=== PATIENT | female | born 1965 | race Caucasian/White ===

== ENCOUNTER → 2017-05-02 13:07 | Outpatient (CLI) | payer BC ==
[2014-12-09 07:34] VITALS: BMI 30.1
[~2017-05-02 13:07] MED LIST: HYDROCODONE-APA1 TAB PO
== END | disposition home or self-care (01) ==
LOC: D.MRI 13:00
DX: R51 Headache (principal)

== ENCOUNTER → 2017-05-02 16:58 | Outpatient (CLI) | payer MEDICAID ==
[2014-12-09 07:34] VITALS: BMI 30.1
== END | disposition home or self-care (01) ==
LOC: D.MAMMO 10:15
DX: Z12.31 Encounter for screening mammogram for malignant neoplasm of breast (principal)

== ENCOUNTER 2017-12-10 09:06 | Observation (INO) | payer BC ==
[~2017-12-10] VITALS: Ht 170.2 cm; Wt 86.2 kg
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
[2017-12-10 12:08] LABS: BASOPHILS 0.2 % (0-2); EOSINOPHILS 1.2 % (0-7); HEMATOCRIT 41.8 % (36.0-48.0); HEMOGLOBIN 13.7 g/dL (12-16); IMMATURE GRANULOCYTES 0.2 % (0-5); LYMPHOCYTES 10.9 % (15-50); MCH 28.7 pg (26.0-34.0); MCHC 32.8 g/dL (31.0-37.0); MCV 87.6 fL (80.0-100.0); MEAN PLATELET VOLUME 10.9 fL (7.4-10.4); MONOCYTES 6.1 % (2-11); NEUTROPHILS 81.4 % (40-80); PLATELET COUNT 210 10x3/uL (130-400); RBC 4.77 10x6/uL (4.00-5.40); RDW 14.2 % (11.5-14.5); WBC 10.8 10x3/uL (4.8-10.8)
[2017-12-10 12:19] LABS: INR 1.02 (0.85-1.17)
[2017-12-10 12:22] LABS: ALBUMIN 3.6 g/dL (3.4-5.0); ALKALINE PHOSPHATASE 158 U/L (46-116); ALT (SGPT) 46 U/L (10-68); BILIRUBIN - TOTAL 0.33 mg/dL (0.2-1.3); CALC OSMOLALITY 281 mosm/kg (275-300); CALCIUM 8.5 mg/dL (8.5-10.1); CARBON DIOXIDE 28.6 mmol/L (21.0-32.0); CHLORIDE - SERUM 107 mmol/L (98-107); CREATININE - SERUM 0.6 mg/dL (0.6-1.3); GLUCOSE 99 mg/dL (74-106); POTASSIUM - SERUM 3.9 mmol/L (3.5-5.1); SODIUM 142 mmol/L (136-145); UREA NITROGEN 9 mg/dL (7-18); eGFR NON AFRICAN AMERICAN > 90 mL/min (90-120)
[2017-12-10 12:30] VITALS: BP 150/86
[2017-12-10 13:00] VITALS: BP 163/113
[2017-12-10 15:41] VITALS: BP 150/89
[2017-12-10 15:45] VITALS: BP 133/82; Ht 170.2 cm; Wt 86.2 kg
[2017-12-10 19:48] VITALS: BP 168/89
[2017-12-10 23:54] VITALS: BP 172/94
[2017-12-11] VITALS (8 sets, daily range): BP systolic 125–181; BP diastolic 72–99
[2017-12-11 06:27] LABS: CALC OSMOLALITY 277 mosm/kg (275-300); CALCIUM 8.1 mg/dL (8.5-10.1); CHLORIDE - SERUM 105 mmol/L (98-107); CREATININE - SERUM 0.5 mg/dL (0.6-1.3); GLUCOSE 111 mg/dL (74-106); POTASSIUM - SERUM 3.9 mmol/L (3.5-5.1); SODIUM 140 mmol/L (136-145); UREA NITROGEN 6 mg/dL (7-18); eGFR NON AFRICAN AMERICAN > 90 mL/min (90-120)
[2017-12-11 06:44] LABS: BASOPHILS 0.2 % (0-2); EOSINOPHILS 1.6 % (0-7); HEMATOCRIT 39.7 % (36.0-48.0); HEMOGLOBIN 12.8 g/dL (12-16); IMMATURE GRANULOCYTES 0.1 % (0-5); LYMPHOCYTES 12.3 % (15-50); MCH 28.5 pg (26.0-34.0); MCHC 32.2 g/dL (31.0-37.0); MCV 88.4 fL (80.0-100.0); MEAN PLATELET VOLUME 10.9 fL (7.4-10.4); MONOCYTES 6.2 % (2-11); NEUTROPHILS 79.6 % (40-80); PLATELET COUNT 194 10x3/uL (130-400); RBC 4.49 10x6/uL (4.00-5.40); RDW 14.5 % (11.5-14.5); WBC 9.8 10x3/uL (4.8-10.8)
[2017-12-11 07:09] LABS: APPEARANCE HAZY (CLEAR); BACTERIA FEW /hpf (NONE SEEN); BILIRUBIN NEGATIVE (NEGATIVE); COLOR YELLOW (YELLOW); GLUCOSE NEGATIVE (NEGATIVE); KETONE NEGATIVE (NEGATIVE); MUCUS <1+ /lpf (NONE SEEN); NITRITE NEGATIVE (NEGATIVE); PROTEIN NEGATIVE (NEGATIVE); RED CELLS - URINE 0-5 /hpf (0-5); SPECIFIC GRAVITY 1.015 (1.005-1.020)
[2017-12-12] VITALS: BP 138/83
[2017-12-12 06:19] VITALS: BP 153/85
[2017-12-12 08:09] VITALS: BP 136/91
[2017-12-12 12:47] VITALS: BP 149/94
[2017-12-12] MEDS ORDERED: NORCO-5 PO (14:21)
[2017-12-12] MEDS ORDERED: MECLIZINE HCL25 MG PO (14:22)
[2017-12-12] MEDS ORDERED: DURICEF500 MG PO (14:22)
[2017-12-12] MEDS ORDERED: ZOFRAN ODT4 MG/UDTAB PO (14:22)
[2017-12-12] MEDS ORDERED: VISTARIL50 MG PO (14:23)
== END 2017-12-12 15:38 | disposition home or self-care (01) ==
LOC: D.ER 09:06 → D.EDHOLD 12:39 → OBSVTIME 12:39 → D.EDHOLD 12:39 → D.MS 12:39
PROVIDERS: Family Medicine
DX: S52.572A Other intraarticular fracture of lower end of left radius, initial encounter for closed fracture (principal); V43.52XA Car driver injured in collision with other type car in traffic accident, initial encounter; S63.092A Other subluxation of left wrist and hand, initial encounter; G35 Multiple sclerosis; R42 Dizziness and giddiness; F17.200 Nicotine dependence, unspecified, uncomplicated; S40.212A Abrasion of left shoulder, initial encounter

== ENCOUNTER 2019-03-05 13:30 | Outpatient (CLI) | payer BC ==
[2017-12-10 15:45] VITALS: BMI 29.8
[~2019-03-05 13:30] MED LIST changes: +DURICEF500 MG PO; +MECLIZINE HCL25 MG PO; +NORCO-5 PO; +VISTARIL50 MG PO; +ZOFRAN ODT4 MG/UDTAB PO
== END 2019-03-05 23:59 | disposition home or self-care (01) ==
LOC: D.MAMMO 13:30
PROVIDERS: ATTEND Family Medicine
DX: Z12.31 Encounter for screening mammogram for malignant neoplasm of breast (principal)

== ENCOUNTER → 2020-09-08 19:58 | Outpatient (CLI) | payer BC ==
[2017-12-10 15:45] VITALS: BMI 29.8
== END | disposition home or self-care (01) ==
LOC: D.MAMMO 10:00
PROVIDERS: ATTEND Family Medicine
DX: Z12.31 Encounter for screening mammogram for malignant neoplasm of breast (principal)

== ENCOUNTER → 2020-11-03 07:16 | Outpatient (CLI) | payer BC ==
[2017-12-10 15:45] VITALS: BMI 29.8
== END | disposition home or self-care (01) ==
LOC: D.US 07:16
PROVIDERS: ATTEND Internal Medicine Gastroenterology
DX: R10.11 Right upper quadrant pain (principal)